=== PATIENT | female | born 1975 | race African-American/Black ===

== ENCOUNTER 2019-04-10 13:41 | Emergency (ER) | payer MEDICAID ==
[~2019-04-10] VITALS: Ht 162.6 cm; Wt 52.0 kg
[2019-04-10] MEDS ORDERED: SODIUM CHLORIDE 0.9% 1,000 ML IV ONE (14:01)
[2019-04-10 14:21] LABS: BASOPHILS % 1.2 % (0.0-2.0); EOSINOPHILS % 1.5 % (0.0-5.0); HEMATOCRIT. 43.5 % (36.0-48.0); HEMOGLOBIN. 14.6 g/dL (12.0-16.0); LYMPHOCYTES % 35.2 % (20.0-50.0); MEAN CORPUSCULAR HEMOGLOBIN 30.2 pg (28.0-32.0); MEAN CORPUSCULAR VOLUME 90.1 fL (81.0-99.0); MEAN PLATELET VOLUME 8.6 fl (7.4-10.4); MONOCYTES % 4.8 % (2.0-8.0); NEUTROPHILS % 57.3 % (40.0-76.0); PLATELET 312 x1000/uL (130-400); RED BLOOD CELL COUNT 4.83 mill/uL (4.2-5.4); RED CELL DISTRIBUTION WIDTH 17.6 % (11.6-14.6)
[2019-04-10 14:28] LABS: CHLORIDE 113 mEq/L (98-107)
[2019-04-10 14:30] LABS: PARTIAL THROMBOPLASTIN TIME 26.8 sec (23.4-31.0); PROTHROMBIN TIME 10.7 sec (9.6-11.0)
[2019-04-10] MEDS ORDERED: KETOROLAC 30MG/ML VIAL IV ONE (14:30)
[2019-04-10 14:31] LABS: ETHANOL BLOOD 114 mg/dL
[2019-04-10 14:36] LABS: CREATINE KINASE 142 IU/L (26-192)
[2019-04-10 14:38] LABS: CREATINE KINASE MB FRACTION < 1.0 ng/mL (0.5-3.6)
[2019-04-10 14:51] LABS: HCG SCREEN NEGATIVE
[2019-04-10] MEDS ORDERED: POTASSIUM CHLORIDE 20MEQ TABLET SR PO ONE (15:00)
[2019-04-10 15:26] VITALS: BP 118/71
== END 2019-04-10 16:00 | disposition left against medical advice (07) ==
LOC: ER 13:41
DX: S29.8XXA Other specified injuries of thorax, initial encounter (principal); S39.81XA Other specified injuries of abdomen, initial encounter; F10.129 Alcohol abuse with intoxication, unspecified; F17.200 Nicotine dependence, unspecified, uncomplicated; V49.9XXA Car occupant (driver) (passenger) injured in unspecified traffic accident, initial encounter; Y93.89 Activity, other specified; Y92.89 Other specified places as the place of occurrence of the external cause; Y99.8 Other external cause status
CPT/HCPCS: 36415; 71045; 80053; 80320; 82550; 82553; 83880; 84484; 84703; 85025; 85610; 85730; 93005; 96374; 99284; J1885; J7030; G0480